=== PATIENT | female | born 1975 | race Caucasian/White ===

== ENCOUNTER 2019-01-06 05:57 | Emergency (ER) | payer MEDICAID, OTHER ==
[~2019-01-06] VITALS: Ht 157.5 cm; Wt 70.0 kg
[2019-01-06] MEDS ORDERED: IBUPROFEN 600MG TABLET PO ONE (07:00)
[2019-01-06] MEDS ORDERED: ACETAMINOPHEN 325MG TABLET PO ONE (07:00)
[2019-01-06] MEDS ORDERED: TRAMADOL 50MG TABLET PO ONE (09:45)
[2019-01-06 11:10] VITALS: BP 112/62
== END 2019-01-06 11:12 | disposition home or self-care (01) ==
LOC: ER 06:34
DX: S09.8XXA Other specified injuries of head, initial encounter (principal); S00.83XA Contusion of other part of head, initial encounter; M54.2 Cervicalgia; I10 Essential (primary) hypertension; K21.9 Gastro-esophageal reflux disease without esophagitis; Z90.49 Acquired absence of other specified parts of digestive tract; Y04.0XXA Assault by unarmed brawl or fight, initial encounter; Y93.89 Activity, other specified; Y92.018 Other place in single-family (private) house as the place of occurrence of the external cause
CPT/HCPCS: 70486; 73130; 99284